=== PATIENT | female | born 1965 | race Caucasian/White ===

== ENCOUNTER → 2017-04-09 | Outpatient (CLI) | payer BC ==
[~2017-04-09] MED LIST: ACET50TA PO; ALBUTEROL INHL INH; ASAC800T2 PO; BIRTH CONTROL PILL PO; CIPR500T89 PO; FLAG500T PO; GARCINIA CAMBOGIA PO; MONT10TA2 PO; OMEP40CA2 PO; POTA20VL PO; PRED10TA2 PO; ROBISYP3 PO; SING5CHW PO; VITAMIN D PO; VITATAB11 PO
--- NOTE | 2017-04-10 08:03 | REPMRS ---
Patient History The patient states she had a clinical breast exam in 03/2017. Family history of breast cancer in maternal aunt and breast cancer in maternal grandmother. Taking hormonal contraceptives for 21 years. Digital Woman Screen Mammo: April 09, 2017 - Exam #: [id number] Bilateral CC and MLO view(s) were taken. Technologist: Aylin Garsia Technologist Prior study comparison: March 08, 2016, digital woman screen mammo performed at [facility] [employer] to [facility]. January 01, 2014, digital woman screen mammo performed at [facility] to [facility] October 16, 2012, digital woman screen mammo performed at [facility] to [facility]. FINDINGS: There are scattered fibroglandular densities. There has been no change in the appearance of the mammogram from the prior studies. There is a mild amount of scattered fibroglandular density which is fairly symmetric. There is no interval development of dominant mass, architectural distortion, or clustered microcalcification suggestive of malignancy. ASSESSMENT: BI-RADS/ACR category 1 mammogram. Negative. Recommendation Routine screening mammogram in 1 year (for women over age 40). This mammogram was interpreted with the aid of an FDA-approved computer-aided dectection system. Electronically Signed By: Randall Hager MD 04/10/17 0803
== END ==
LOC: M WHC 15:29
PROVIDERS: ATTEND Nurse Practitioner Family
DX: Z12.31 Encounter for screening mammogram for malignant neoplasm of breast (principal)

== ENCOUNTER → 2017-04-09 | Outpatient (REF) | payer BC | LOC: M SFHCWAGY 16:08 | PROVIDERS: ATTEND Nurse Practitioner Family | DX: Z12.4 Encounter for screening for malignant neoplasm of cervix (principal) ==

== ENCOUNTER → 2017-11-08 | Outpatient (CLI) | payer OTHER | LOC: M ADAMS 18:33 | DX: M25.78 Osteophyte, vertebrae (principal); M51.36 Other intervertebral disc degeneration, lumbar region; M54.41 Lumbago with sciatica, right side | CPT/HCPCS: 72110 ==

== ENCOUNTER → 2017-11-15 | Outpatient (REF) | payer OTHER ==
[2017-11-19 14:16] LABS: HPV HYBRID CAPTURE II Negative (Negative)
== END ==
LOC: M SFHCWAGY 13:53
DX: R87.612 Low grade squamous intraepithelial lesion on cytologic smear of cervix (LGSIL) (principal)

== ENCOUNTER → 2017-12-28 | Outpatient (CLI) | payer OTHER ==
[2017-12-28 09:11] LABS: HEMATOCRIT 41.3 % (36.0-47.0); HEMOGLOBIN 13.7 g/dl (12.0-16.0); MEAN CORPUSCULAR HEMOGLOBIN 29.1 pg (27.0-33.0); MEAN CORPUSCULAR HGB CONC 33.2 g/dl (32.0-36.5); MEAN CORPUSCULAR VOLUME 87.9 fl (80.0-96.0); PLATELET COUNT, AUTOMATED 233 10^3/uL (150-450); RED CELL DISTRIBUTION WIDTH 13.5 % (11.5-14.5); WHITE BLOOD COUNT 10.1 10^3/uL (4.0-10.0)
[2017-12-28 09:20] LABS: CREATININE FOR GFR 0.83 MG/DL (0.55-1.30); GLOMERULAR FILTRATION RATE > 60.0 (>51); IRON (FE) 112 UG/DL (50-170); PERCENT SATURATION 27.1 % (13.2-45.0); THYROXINE (T4) 11.7 UG/DL (4.5-12.0); TOTAL IRON BINDING CAPACITY 413 UG/DL (250-450)
[2017-12-28 10:13] LABS: ESTIMATED AVERAGE GLUCOSE 103 MG/DL (60-110); HEMOGLOBIN A1c 5.2 %
[2017-12-28 11:26] LABS: ALBUMIN 3.4 GM/DL (3.2-5.2); ALBUMIN/GLOBULIN RATIO 1.13 (1.00-1.93); ALKALINE PHOSPHATASE 74 U/L (45-117); ALT/SGPT 27 U/L (12-78); ANION GAP 9 MEQ/L (8-16); AST/SGOT 15 U/L (7-37); BILIRUBIN,TOTAL 0.3 MG/DL (0.2-1.0); BLOOD UREA NITROGEN 14 MG/DL (7-18); CALCIUM LEVEL 8.4 MG/DL (8.5-10.1); CARBON DIOXIDE LEVEL 24 MEQ/L (21-32); CHLORIDE LEVEL 109 MEQ/L (98-107); POTASSIUM SERUM 4.5 MEQ/L (3.5-5.1); SODIUM LEVEL 142 MEQ/L (136-145); TOTAL PROTEIN 6.4 GM/DL (6.4-8.2); TRIGLYCERIDES LEVEL 111 MG/DL (<150)
[2017-12-28 11:40] LABS: CHOLESTEROL LEVEL 181 MG/DL (<200); GLUCOSE, FASTING 84 MG/DL (70-100)
[2017-12-28 11:41] LABS: CHOLESTEROL RISK RATIO 2.873 (<5); HDL CHOLESTEROL 63 MG/DL (>40); LDL CHOLESTEROL 95.8 MG/DL (<100); NON-HDL-C 118 MG/DL
[2017-12-30 10:38] LABS: TOTAL 25(OH) VITAMIN D 29.3 NG/ML (30.0-100.0)
[2017-12-30 10:43] LABS: TOTAL T3 99.6 NG/DL (60.0-181.0)
== END ==
LOC: M LAB 07:31
DX: D64.9 Anemia, unspecified (principal); R53.83 Other fatigue; E03.9 Hypothyroidism, unspecified
CPT/HCPCS: 71046

== ENCOUNTER → 2018-03-14 | Outpatient (REF) | payer OTHER ==
[2018-03-14 14:08] LABS: URIC ACID 4.4 MG/DL (2.6-6.0)
[2018-03-14 14:08] LABS: RHEUMATOID FACTOR QUANT < 10.0 IU/ML (<15.0); TOTAL 25(OH) VITAMIN D 63.8 NG/ML (30.0-100.0)
[2018-03-14 15:23] LABS: ERYTHROCYTE SEDIMENTATION RATE 8 mm/hr (0-30)
[2018-03-16 00:06] LABS: Lyme Disease IgG/IgM Antibodie <0.91 ISR (0.00-0.90); Lyme Disease IgM Ab Quantitati <0.80 index (0.00-0.79)
== END ==
LOC: M LAB REF 12:33
DX: R53.83 Other fatigue (principal); E03.9 Hypothyroidism, unspecified
CPT/HCPCS: 84443

== ENCOUNTER → 2018-04-10 | Outpatient (CLI) | payer OTHER | LOC: M WHC 14:40 | DX: Z12.31 Encounter for screening mammogram for malignant neoplasm of breast (principal) | CPT/HCPCS: 77067 ==

== ENCOUNTER → 2018-04-10 | Outpatient (REF) | payer OTHER | LOC: M SFHCWAGY 14:57 | DX: Z12.4 Encounter for screening for malignant neoplasm of cervix (principal) ==

== ENCOUNTER → 2019-04-07 | Outpatient (REF) | payer OTHER ==
[~2019-04-07] MED LIST changes: -ACET50TA PO; -ASAC800T2 PO; +MAPA500T17 PO; -POTA20VL PO; +POTA2INJ30 PO; +[UNRECOGNIZED DRUG - CODE] PO
== END ==
LOC: M LAB REF 19:21
PROVIDERS: ATTEND Physician Assistant Medical
DX: N39.0 Urinary tract infection, site not specified (principal)

== ENCOUNTER → 2019-07-07 | Outpatient (CLI) | payer OTHER ==
--- NOTE | 2019-07-08 05:51 | REP ---
Clinical: Left shoulder pain. Technique: Internal rotation, external rotation, and Y view of the left shoulder. Findings: Cortical irregularity and very early spurring at the acromioclavicular joint is appreciated along with small loose bodies adjacent to the posterior and inferior humeral head suggesting elements of calcific tendinopathy. The glenoid rim is intact. There is no evidence for acute fracture or dislocation. Subacromial space is normal. Impression: Mild osteoarthritic degenerative changes and evidence to suggest calcific tendinopathy. Electronically Signed by Kashmir Garcias MD 07/08/2019 05:42 A
== END ==
LOC: M ADAMS 16:09
PROVIDERS: ATTEND Family Medicine
DX: M25.512 Pain in left shoulder (principal); M19.012 Primary osteoarthritis, left shoulder

== ENCOUNTER → 2019-08-12 | Outpatient (REF) | payer OTHER | LOC: M SFHCWAGY 11:49 | PROVIDERS: ATTEND Nurse Practitioner Family | DX: Z12.4 Encounter for screening for malignant neoplasm of cervix (principal) ==

== ENCOUNTER → 2019-12-22 | Outpatient (REF) | payer OTHER ==
[2019-12-22 13:15] LABS: HEMATOCRIT 43.7 % (36.0-47.0); HEMOGLOBIN 13.9 g/dl (12.0-15.5); MEAN CORPUSCULAR HEMOGLOBIN 30.5 pg (27.0-33.0); MEAN CORPUSCULAR HGB CONC 31.8 g/dl (32.0-36.5); PLATELET COUNT, AUTOMATED 203 10^3/uL (150-450); RED BLOOD COUNT 4.55 10^6/uL (4.00-5.40); WHITE BLOOD COUNT 11.8 10^3/uL (4.0-10.0)
[2019-12-22 13:45] LABS: ALBUMIN 3.6 GM/DL (3.2-5.2); ALT/SGPT 38 U/L (12-78); BILIRUBIN,TOTAL 0.4 MG/DL (0.2-1.0); BLOOD UREA NITROGEN 14 MG/DL (7-18); CARBON DIOXIDE LEVEL 30 MEQ/L (21-32); CHLORIDE LEVEL 108 MEQ/L (98-107); CHOLESTEROL LEVEL 227 MG/DL (<200); CHOLESTEROL RISK RATIO 3.721 (<5); CREATININE FOR GFR 0.85 MG/DL (0.55-1.30); GLOMERULAR FILTRATION RATE > 60.0 (>51); GLUCOSE, FASTING 77 MG/DL (70-100); HDL CHOLESTEROL 61 MG/DL (>40); LDL CHOLESTEROL 112 MG/DL (<100); NON-HDL-C 166 MG/DL; POTASSIUM SERUM 4.3 MEQ/L (3.5-5.1); SODIUM LEVEL 142 MEQ/L (136-145); TOTAL 25(OH) VITAMIN D 43.2 NG/ML (30.0-100.0); TOTAL PROTEIN 6.2 GM/DL (6.4-8.2); TRIGLYCERIDES LEVEL 268 MG/DL (<150)
[2019-12-22 19:45] LABS: HEMOGLOBIN A1c 5.1 %
== END ==
LOC: M LABDRWAD 12:33
PROVIDERS: ATTEND Family Medicine
DX: D64.9 Anemia, unspecified (principal); R53.83 Other fatigue; E03.9 Hypothyroidism, unspecified

== ENCOUNTER 2020-04-20 15:49 | Emergency (ER) | payer MEDICAID, OTHER ==
[~2020-04-20] VITALS: Ht 157.5 cm; Wt 59.1 kg
[2020-04-20 16:15] VITALS: BP 153/67
[2020-04-20] MEDS ORDERED: NS 1,000 ML IV ONE (16:15)
[2020-04-20] MEDS ORDERED: FAMOTIDINE INJ 20MG/2ML VIAL (S0028 PER 1) IVP ONE (16:15)
[2020-04-20] MEDS ORDERED: dexameTHASONE 20MG/5ML VIAL (J1100 PER 1MG) IV ONE (16:15)
[2020-04-20 16:39] LABS: BASO % 0.2 % (0.0-1.0); EOS % 0.1 % (0.0-3.0); HEMATOCRIT 42.6 % (36.0-47.0); HEMOGLOBIN 14.2 g/dl (12.0-15.5); LYMPH # 1.8 10^3/uL (1.5-5.0); LYMPH % 10.4 % (24.0-44.0); MEAN CORPUSCULAR HEMOGLOBIN 29.7 pg (27.0-33.0); MEAN CORPUSCULAR HGB CONC 33.3 g/dl (32.0-36.5); MEAN CORPUSCULAR VOLUME 89.1 fl (80.0-96.0); MONO # 0.9 10^3/uL (0.0-0.8); MONO % 5.2 % (0.0-5.0); NEUTROPHILS # 14.2 10^3/uL (1.5-8.5); NEUTROPHILS % 83.7 % (36.0-66.0); PLATELET COUNT, AUTOMATED 215 10^3/uL (150-450); RED BLOOD COUNT 4.78 10^6/uL (4.00-5.40); WHITE BLOOD COUNT 16.9 10^3/uL (4.0-10.0)
[2020-04-20 17:02] LABS: ERYTHROCYTE SEDIMENTATION RATE 3 mm/hr (0-30)
[2020-04-20 17:06] LABS: BLOOD UREA NITROGEN 11 MG/DL (7-18); C REACTIVE PROTEIN QUANTITATIV 0.94 MG/DL (0.00-0.30); CARBON DIOXIDE LEVEL 24 MEQ/L (21-32); CHLORIDE LEVEL 108 MEQ/L (98-107); CREATININE FOR GFR 0.86 MG/DL (0.55-1.30); GLOMERULAR FILTRATION RATE > 60.0 (>51); GLUCOSE, FASTING 97 MG/DL (70-100); SODIUM LEVEL 138 MEQ/L (136-145)
[2020-04-20] MEDS ORDERED: EPIP0.3I2 IM (18:14)
== END 2020-04-20 18:58 | disposition home or self-care (01) ==
LOC: EDBD 15:49 → M ED 15:49
DX: S10.96XA Insect bite of unspecified part of neck, initial encounter (principal); Y92.9 Unspecified place or not applicable; Y93.9 Activity, unspecified; Y99.9 Unspecified external cause status; L50.0 Allergic urticaria; F17.200 Nicotine dependence, unspecified, uncomplicated; F10.99 Alcohol use, unspecified with unspecified alcohol-induced disorder; Z79.51 Long term (current) use of inhaled steroids; Z79.52 Long term (current) use of systemic steroids; Z79.899 Other long term (current) drug therapy
CPT/HCPCS: 80048; 85025; 85652; 86140; 93041; 94760; 96361; 96374; 96375; 99285; J1100

== ENCOUNTER → 2020-05-30 | Outpatient (CLI) | payer MEDICAID, OTHER ==
[~2020-05-30] MED LIST changes: +EPIP0.3I2 IM; +PROHANCE 279.3MG/ML 15ML VIAL ONE
--- NOTE | 2020-07-08 15:00 | REP ---
BILATERAL BREAST MRI STUDY WITHOUT AND WITH INTRAVENOUS CONTRAST HISTORY: Genetic susceptibility to breast cancer for breast cancer screening. COMPARISON: Mammography 04/10/2018. MAMMOGRAPHIC FINDINGS: There is a [id number] pattern of symmetric fibroglandular tissue bilaterally. There is a minimal pattern of background parenchymal enhancement. There is no evidence of axillary lymphadenopathy on either side. T1 and T2- weighted pre- and postcontrast images show no suspicious morphologically abnormality. There is no evidence of significant breast cystic change. Dynamically acquired sequential postcontrast images show no suspicious focus of enhancement and/or washout in either breast to suggest malignancy. Subtraction images are unremarkable. IMPRESSION: BI-RADS Category 1 negative bilateral breast MRI findings. Patients whose lifetime breast caner risk assessment is greater than 20% merit annual screening MRI scanning in addition to annual screening mammography. LUBNAD
== END ==
LOC: M RAD 10:00
PROVIDERS: ATTEND Surgery
DX: Z15.01 Genetic susceptibility to malignant neoplasm of breast (principal)
CPT/HCPCS: A9576; C8908

== ENCOUNTER → 2020-11-03 | Outpatient (CLI) | payer OTHER ==
[~2020-11-03] MED LIST changes: -PROHANCE 279.3MG/ML 15ML VIAL ONE
--- NOTE | 2020-11-03 12:25 | REPMRS ---
Patient History The patient states she had a clinical breast exam in August 2020. Family history of breast cancer in maternal grandmother, breast cancer in maternal aunt. Took hormonal contraceptives for 23 years. 3D TOMOSYNTHESIS WAS PERFORMED. The [place] Berumen lifetime risk for breast cancer is 14.3%. Volpara breast density b. Digital Woman Screen Mammo: November 03, 2020 - Exam #: [id number] Bilateral CC and MLO view(s) were taken. Technologist: Alfreda Kilgore, Technologist Prior study comparison: April 10, 2018, bilateral digital woman screen mammo performed at [facility]. April 09, 2017, digital woman screen mammo performed at [facility]. FINDINGS: There are scattered fibroglandular densities. There has been no change in the appearance of the mammogram from the prior studies. There is a mild amount of residual fibroglandular tissue which is fairly symmetric. There is no interval development of dominant mass, architectural distortion, or clustered microcalcification suggestive of malignancy. Assessment: BI-RADS/ACR category 1 mammogram. Negative Mammogram. Recommendation Routine screening mammogram in 1 year (for women over age 40). This mammogram was interpreted with the aid of an FDA-approved computer-aided dectection system. Electronically Signed By: Chaitanya Borja MD 11/03/20 [id number]
== END ==
LOC: M WHC 11:21
PROVIDERS: ATTEND Nurse Practitioner Family
DX: Z12.31 Encounter for screening mammogram for malignant neoplasm of breast (principal)

== ENCOUNTER → 2020-11-09 | Outpatient (REF) | payer OTHER | LOC: M SFHCWAGY 13:45 | PROVIDERS: ATTEND Nurse Practitioner Family | DX: Z12.4 Encounter for screening for malignant neoplasm of cervix (principal); Z01.419 Encounter for gynecological examination (general) (routine) without abnormal findings ==

== ENCOUNTER → 2020-12-22 | Outpatient (REF) | payer OTHER ==
[2020-12-22 13:20] LABS: HEMATOCRIT 43.3 % (36.0-47.0); HEMOGLOBIN 13.9 g/dl (12.0-15.5); MEAN CORPUSCULAR HEMOGLOBIN 29.6 pg (27.0-33.0); MEAN CORPUSCULAR HGB CONC 32.1 g/dl (32.0-36.5); MEAN CORPUSCULAR VOLUME 92.3 fl (80.0-96.0); PLATELET COUNT, AUTOMATED 214 10^3/uL (150-450); RED BLOOD COUNT 4.69 10^6/uL (4.00-5.40); WHITE BLOOD COUNT 8.3 10^3/uL (4.0-10.0)
[2020-12-22 13:51] LABS: ALBUMIN 3.7 GM/DL (3.2-5.2); ALT/SGPT 31 U/L (12-78); BILIRUBIN,DIRECT < 0.1 MG/DL (0.0-0.2); BILIRUBIN,TOTAL 0.3 MG/DL (0.2-1.0); BLOOD UREA NITROGEN 11 MG/DL (7-18); CALCIUM LEVEL 9.3 MG/DL (8.5-10.1); CARBON DIOXIDE LEVEL 26 MEQ/L (21-32); CHLORIDE LEVEL 109 MEQ/L (98-107); CREATININE FOR GFR 0.81 MG/DL (0.55-1.30); GLOMERULAR FILTRATION RATE > 60.0 (>51); GLUCOSE, FASTING 83 MG/DL (70-100); POTASSIUM SERUM 4.1 MEQ/L (3.5-5.1); SODIUM LEVEL 142 MEQ/L (136-145); TOTAL PROTEIN 6.2 GM/DL (6.4-8.2)
[2020-12-22 13:52] LABS: TOTAL 25(OH) VITAMIN D 44.8 NG/ML (30.0-100.0)
[2020-12-22 14:13] LABS: HEMOGLOBIN A1c 5.1 %
== END ==
LOC: M LABDRWAD 13:00
PROVIDERS: ATTEND Family Medicine
DX: I10 Essential (primary) hypertension (principal); R53.83 Other fatigue; E03.9 Hypothyroidism, unspecified

== ENCOUNTER → 2021-02-17 | Outpatient (CLI) | payer OTHER ==
[~2021-02-17] MED LIST changes: +LIAL1.2T PO; +MESA1000 PR; +ZOLP10TA2 PO
== END ==
LOC: M LABSMTC 12:43
PROVIDERS: ATTEND Anesthesiology
DX: Z01.812 Encounter for preprocedural laboratory examination (principal); Z20.822 Contact with and (suspected) exposure to COVID-19

== ENCOUNTER 2021-02-22 10:20 | Day surgery (SDC) | payer OTHER ==
[~2021-02-22] VITALS: Ht 157.5 cm; Wt 65.7 kg
[~2021-02-22 10:20] MED LIST changes: +NS 1,000 ML IV ONE
[2021-02-22] MEDS ORDERED: propofoL 200 MG/20 ML VIAL As Ordered ONE ×2 (11:38→11:50)
[2021-02-22] MEDS ORDERED: LIDOCAINE 2% MDV 20ML VIAL As Ordered ONE (11:38)
--- NOTE | 2021-02-22 12:02 | ROOR ---
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 Procedure: Pre-Anesthesia Assessment: - The heart rate, respiratory rate, oxygen saturations, blood pressure, adequacy of pulmonary ventilation, and response to care were monitored throughout the procedure. The Colonoscope was introduced through the anus and advanced to the cecum, identified by appendiceal orifice and ileocecal valve. The colonoscopy was performed without difficulty. The patient tolerated the procedure well. The quality of the bowel preparation was excellent. Findings: The perianal and digital rectal examinations were normal. Non-bleeding internal hemorrhoids were found during retroflexion. The hemorrhoids were small and Grade I (internal hemorrhoids that do not prolapse). Multiple small and large-mouthed diverticula were found in the recto-sigmoid colon, sigmoid colon and descending colon. The exam was otherwise normal throughout the examined colon. Multiple biopsies were obtained with cold forceps for surveillance randomly in the rectum, in the descending colon and in the transverse colon. The terminal ileum appeared normal. The exam was otherwise without abnormality. Impression: - Non-bleeding internal hemorrhoids. - Diverticulosis in the recto-sigmoid colon, in the sigmoid colon and in the descending colon. - The examined portion of the ileum was normal. - The examination was otherwise normal. - Multiple biopsies were obtained in the rectum, in the descending colon and in the transverse colon. - The exam was otherwise normal to the cecum. Recommendation: - Patient has a contact number available for emergencies. The signs and symptoms of potential delayed complications were discussed with the patient. Return to normal activities tomorrow. Written discharge instructions were provided to the patient. - High fiber diet. - Discharge patient to home. - Continue present medications. - Await pathology results. - Telephone GI clinic for pathology results in 1 week. - Repeat colonoscopy in 5 years for surveillance based on pathology results. - Return to referring physician. - The findings and recommendations were discussed with the patient's family. Procedure Code(s): --- Professional --- 39201, Colonoscopy, flexible; with biopsy, single or multiple Diagnosis Code(s): --- Professional --- K51.50, Left sided colitis without complications K64.0, First degree hemorrhoids K57.30, Diverticulosis of large intestine without perforation or abscess without bleeding CPT copyright 2019 [employer]. All rights reserved. The codes documented in this report are preliminary and upon grocery buyer review may be revised to meet current compliance requirements. Carroll Byrne MD Carroll Byrne MD 02/22/2021 12:02:19 PM Electronically signed by Carroll Byrne MD Number of Addenda: 0 Note Initiated On: 02/22/2021 11:39 AM Estimated Blood Loss: Estimated blood loss: none.
[2021-02-22 12:15] VITALS: BP 147/67
== END 2021-02-22 12:17 | disposition home or self-care (01) ==
LOC: M OPP 10:20
PROVIDERS: ATTEND Internal Medicine Gastroenterology
DX: K51.50 Left sided colitis without complications (principal); K64.0 First degree hemorrhoids; K57.30 Diverticulosis of large intestine without perforation or abscess without bleeding; I73.00 Raynaud's syndrome without gangrene; Z79.899 Other long term (current) drug therapy; Z87.891 Personal history of nicotine dependence

== ENCOUNTER → 2021-08-01 | Outpatient (CLI) | payer OTHER ==
[~2021-08-01] MED LIST changes: -NS 1,000 ML IV ONE; +PROHANCE 279.3MG/ML 15ML VIAL As Ordered ONE
--- NOTE | 2021-08-01 11:47 | REP ---
INDICATION: HIGH RISK FOR BREAST CA, FAM HX. COMPARISON: MRI 05/30/2020, mammogram 11/03/2020 as well as other prior exams. TECHNIQUE: Three Aleisha MRI imaging was performed with a dedicated breast coil. Axial, coronal, and sagittal T1 and T2 weighted scans were obtained with and without fat saturation in the usual fashion. The study includes dynamically acquired post gadolinium-enhanced imaging with image subtraction. Maximum intensity projection and multi planar reformation imaging is included as well. This study is interpreted with the aid of [employer], an FDA approved computer aided detection (CAD) software program, on a dedicated breast MRI workstation. The gadolinium enhancement dose is 12 mL of intravenous ProHance. FINDINGS: There is mild fibroglandular tissue symmetrically bilaterally. There is no axillary adenopathy. There is no significant cystic change in either breast. There is mild background parenchymal enhancement. There is no suspicious enhancing mass or morphologic abnormality. IMPRESSION: BI-RADS category 1, negative bilateral breast MRI. No suspicious enhancing mass or morphologic abnormality. <Electronically signed by Chaitanya Borja > 08/01/21 [id number]
== END ==
LOC: M RAD 08:43
PROVIDERS: ATTEND Surgery
DX: Z12.31 Encounter for screening mammogram for malignant neoplasm of breast (principal); Z91.89 Other specified personal risk factors, not elsewhere classified; Z80.3 Family history of malignant neoplasm of breast
CPT/HCPCS: 77049; A9576

== ENCOUNTER → 2021-12-11 | Outpatient (REF) | payer OTHER ==
[~2021-12-11] MED LIST changes: -PROHANCE 279.3MG/ML 15ML VIAL As Ordered ONE
== END ==
LOC: M SFHCDERM 17:17
PROVIDERS: ATTEND Nurse Practitioner Family
DX: B07.9 Viral wart, unspecified (principal)

== ENCOUNTER → 2022-07-13 | Outpatient (CLI) | payer MEDICARE, MEDICAID | LOC: M WHC 08:50 | PROVIDERS: ATTEND Advanced Practice Midwife | DX: Z12.31 Encounter for screening mammogram for malignant neoplasm of breast (principal) ==

== ENCOUNTER → 2023-02-21 | Outpatient (CLI) | payer MEDICARE ==
[2023-02-21 08:54] LABS: HEMATOCRIT 42.4 % (36.0-47.0); HEMOGLOBIN 13.7 g/dl (12.0-15.5); MEAN CORPUSCULAR HEMOGLOBIN 29.2 pg (27.0-33.0); MEAN CORPUSCULAR HGB CONC 32.3 g/dl (32.0-36.5); MEAN CORPUSCULAR VOLUME 90.4 fl (80.0-96.0); PLATELET COUNT, AUTOMATED 205 10^3/uL (150-450); RED BLOOD COUNT 4.69 10^6/uL (4.00-5.40); WHITE BLOOD COUNT 8.6 10^3/uL (4.0-10.0)
[2023-02-21 09:25] LABS: ALBUMIN 3.8 G/DL (3.2-5.2); ALKALINE PHOSPHATASE 133 U/L (46-116); ALT/SGPT 32 U/L (7.0-40); AST/SGOT 28 U/L (<34); BILIRUBIN,TOTAL 0.5 MG/DL (0.3-1.2); BLOOD UREA NITROGEN 11 MG/DL (9-23); CALCIUM LEVEL 9.1 MG/DL (8.5-10.1); CARBON DIOXIDE LEVEL 28 MMOL/L (20-31); CHLORIDE LEVEL 107 MMOL/L (98-107); CHOLESTEROL LEVEL 243 MG/DL (<200); CHOLESTEROL RISK RATIO 4.22 (<5); CREATININE FOR GFR 0.82 MG/DL (0.55-1.30); GLOMERULAR FILTRATION RATE > 60.0 (>51); GLUCOSE, FASTING 95 MG/DL (60-100); HDL CHOLESTEROL 57.5 MG/DL (>40); LDL CHOLESTEROL 140.5 MG/DL (<100); NON-HDL-C 185.5 MG/DL; SODIUM LEVEL 141 MMOL/L (136-145); TOTAL PROTEIN 6.6 G/DL (5.7-8.2); TRIGLYCERIDES LEVEL 225 MG/DL (<150)
[2023-02-21 09:26] LABS: LUTEINIZING HORMONE 35.2 mIU/ML
[2023-02-21 09:27] LABS: ESTRADIOL < 19.0 PG/ML; THYROID STIMULATING HORMONE 1.351 uIU/ML (0.55-4.78); TOTAL 25(OH) VITAMIN D 38.8 NG/ML (20.0-100.0)
[2023-02-21 09:48] LABS: HEMOGLOBIN A1c 5.2 % (4.0-6.0)
== END ==
LOC: M RAD 07:52
PROVIDERS: ATTEND Family Medicine
DX: R53.83 Other fatigue (principal); I10 Essential (primary) hypertension; E03.9 Hypothyroidism, unspecified; D64.9 Anemia, unspecified; Z79.899 Other long term (current) drug therapy

== ENCOUNTER → 2023-02-26 | Outpatient (CLI) | payer MEDICAID, MEDICARE ==
[~2023-02-26] MED LIST changes: +PROHANCE 279.3MG/ML 15ML VIAL ONE
== END ==
LOC: M PLAIMG 12:52
PROVIDERS: ATTEND Advanced Practice Midwife
DX: Z12.31 Encounter for screening mammogram for malignant neoplasm of breast (principal)
CPT/HCPCS: A9576; C8908

== ENCOUNTER → 2023-07-24 | Outpatient (REF) | payer MEDICARE, MEDICAID ==
[~2023-07-24] MED LIST changes: -PROHANCE 279.3MG/ML 15ML VIAL ONE
== END ==
LOC: M SFHCWAGY 13:15
PROVIDERS: ATTEND Nurse Practitioner Family
DX: Z12.4 Encounter for screening for malignant neoplasm of cervix (principal); R10.2 Pelvic and perineal pain

== ENCOUNTER → 2023-07-24 | Outpatient (CLI) | payer MEDICARE, MEDICAID | LOC: M WHC 09:22 | PROVIDERS: ATTEND Nurse Practitioner Family | DX: Z12.31 Encounter for screening mammogram for malignant neoplasm of breast (principal) ==

== ENCOUNTER → 2023-09-07 | Outpatient (CLI) | payer MEDICARE, MEDICAID ==
[2023-09-07 09:35] LABS: HEMATOCRIT 47.5 % (36.0-47.0); HEMOGLOBIN 15.8 g/dl (12.0-15.5); MEAN CORPUSCULAR HEMOGLOBIN 29.8 pg (27.0-33.0); MEAN CORPUSCULAR HGB CONC 33.3 g/dl (32.0-36.5); MEAN CORPUSCULAR VOLUME 89.5 fl (80.0-96.0); PLATELET COUNT, AUTOMATED 237 10^3/uL (150-450); RED BLOOD COUNT 5.31 10^6/uL (4.00-5.40)
[2023-09-07 09:43] LABS: AMORPHOUS SEDIMENT SMALL (NEGATIVE); APPEARANCE, URINE CLOUDY (CLEAR); BACTERIA, URINE AUTO NEGATIVE (NEGATIVE); BILIRUBIN, URINE AUTO NEGATIVE (NEGATIVE); BLOOD, URINE BLOOD NEGATIVE (NEGATIVE); COLOR, URINE YELLOW (YELLOW); GLUCOSE, URINE (UA) AUTO NEGATIVE (NEGATIVE); KETONE, URINE AUTO TRACE mg/dL (NEGATIVE); LEUKOCYTE ESTERASE, URINE AUTO 3+ (NEGATIVE); MUCUS, URINE SMALL (NEGATIVE); NITRITE, URINE AUTO NEGATIVE (NEGATIVE); PROTEIN, URINE AUTO NEGATIVE (NEGATIVE); RBC, URINE AUTO 2 /HPF (0-3); SPECIFIC GRAVITY URINE AUTO 1.017 (1.002-1.035); SQUAMOUS EPITHELIAL CELL UR AU 9 /HPF (0-6); UROBILINOGEN, URINE AUTO 0.2 mg/dL (0.0-2.0); WBC, URINE AUTO 45 /HPF (0-3)
[2023-09-07 10:07] LABS: ALBUMIN 3.9 G/DL (3.2-5.2); ALKALINE PHOSPHATASE 97 U/L (46-116); ALT/SGPT 34 U/L (7.0-40); AST/SGOT 39 U/L (<34); BILIRUBIN,TOTAL 0.6 MG/DL (0.3-1.2); BLOOD UREA NITROGEN 9 MG/DL (9-23); CARBON DIOXIDE LEVEL 29 MMOL/L (20-31); CHLORIDE LEVEL 106 MMOL/L (98-107); CHOLESTEROL LEVEL 233 MG/DL (<200); CHOLESTEROL RISK RATIO 3.45 (<5); CREATININE FOR GFR 0.73 MG/DL (0.55-1.30); GLOMERULAR FILTRATION RATE > 60.0 (>51); GLUCOSE, FASTING 90 MG/DL (60-100); HDL CHOLESTEROL 67.4 MG/DL (>40); NON-HDL-C 165.6 MG/DL; SODIUM LEVEL 144 MMOL/L (136-145); TOTAL PROTEIN 6.7 G/DL (5.7-8.2); TRIGLYCERIDES LEVEL 133 MG/DL (<150)
[2023-09-07 10:11] LABS: THYROID STIMULATING HORMONE 1.475 uIU/ML (0.55-4.78)
== END ==
LOC: M LAB 08:50
PROVIDERS: ATTEND Family Medicine
DX: I10 Essential (primary) hypertension (principal); D64.9 Anemia, unspecified; N39.0 Urinary tract infection, site not specified

== ENCOUNTER → 2023-09-11 | Outpatient (CLI) | payer MEDICARE, OTHER | LOC: M RAD 12:10 | PROVIDERS: ATTEND Family Medicine | DX: R31.9 Hematuria, unspecified (principal); N32.89 Other specified disorders of bladder ==

== ENCOUNTER → 2023-09-30 | Outpatient (CLI) | payer MEDICARE, OTHER ==
[~2023-09-30] MED LIST changes: +GASTROGRAFIN SOLUTION 30ML As Ordered ONE; +ISOVUE-370 76% 100ML VIAL As Ordered ONE
== END ==
LOC: M RAD 15:41
PROVIDERS: ATTEND Family Medicine
DX: R19.03 Right lower quadrant abdominal swelling, mass and lump (principal)
CPT/HCPCS: 74178; Q9963; Q9967

== ENCOUNTER 2023-10-25 16:13 | Outpatient (CLI) | payer MEDICARE, OTHER ==
[~2023-10-25] VITALS: Ht 157.5 cm; Wt 60.0 kg
[~2023-10-25 16:13] MED LIST changes: -GASTROGRAFIN SOLUTION 30ML As Ordered ONE; -ISOVUE-370 76% 100ML VIAL As Ordered ONE
[2023-10-25 16:30] VITALS: BP 140/90; TEMP 98.3; O2SAT 100
[2023-10-25] MEDS ORDERED: VEDOLIZUMAB 300 MG in NS 250 ML IV ONE (16:30)
[2023-10-25] MEDS ORDERED: FLUO40CA PO (16:59)
[2023-10-25] MEDS ORDERED: PHEN30CA21 PO (16:59)
[2023-10-25] MEDS ORDERED: ENTY1INJ IV (17:01)
[2023-10-25 17:55] VITALS: BP 138/72; TEMP 98.1; O2SAT 100
== END 2023-10-25 18:10 | disposition home or self-care (01) ==
LOC: M INFU 16:13
PROVIDERS: ATTEND Internal Medicine Gastroenterology
DX: K51.90 Ulcerative colitis, unspecified, without complications (principal)
CPT/HCPCS: 96365; J3380

== ENCOUNTER 2023-11-08 16:15 | Outpatient (CLI) | payer MEDICARE, OTHER ==
[~2023-11-08] VITALS: Ht 160 cm; Wt 60.4 kg
[~2023-11-08 16:15] MED LIST changes: +ENTY1INJ IV; +FLUO40CA PO; +PHEN30CA21 PO
[2023-11-08 16:19] VITALS: BP 158/78; TEMP 98.8; O2SAT 100
[2023-11-08] MEDS: VEDOLIZUMAB 300 MG in NS 250 ML IV ONE (17:13)
[2023-11-08 17:50] VITALS: BP 156/77; O2SAT 100
== END 2023-11-08 17:50 | disposition home or self-care (01) ==
LOC: M INFU 16:15
PROVIDERS: ATTEND Internal Medicine Gastroenterology
DX: K51.90 Ulcerative colitis, unspecified, without complications (principal)
CPT/HCPCS: 96365; J3380

== ENCOUNTER → 2023-11-26 | Outpatient (REF) | payer MEDICARE, OTHER | LOC: M SFHCWAGY 13:08 | PROVIDERS: ATTEND Nurse Practitioner Family | DX: R39.14 Feeling of incomplete bladder emptying (principal) ==

== ENCOUNTER → 2023-11-28 | Outpatient (REF) | payer MEDICARE, OTHER | LOC: M SFHCWAGY 17:30 | PROVIDERS: ATTEND Nurse Practitioner Family | DX: R39.14 Feeling of incomplete bladder emptying (principal) ==

== ENCOUNTER 2023-12-06 10:10 | Outpatient (CLI) | payer MEDICAID, MEDICARE ==
[~2023-12-06] VITALS: Ht 157.5 cm; Wt 60.5 kg
[2023-12-06 10:30] VITALS: BP 128/70; O2SAT 100
[2023-12-06] MEDS: VEDOLIZUMAB 300 MG in NS 250 ML IV ONE (10:47)
[2023-12-06 11:30] VITALS: BP 142/88; O2SAT 100
[2023-12-06] MEDS ORDERED: VEDOLIZUMAB 300 MG in NS 250 ML IV ONE (16:30)
== END 2023-12-06 11:30 ==
LOC: M INFU 10:10
PROVIDERS: ATTEND Internal Medicine Gastroenterology
DX: K51.90 Ulcerative colitis, unspecified, without complications (principal)
CPT/HCPCS: 96365; J3380

== ENCOUNTER 2024-01-31 12:49 | Outpatient (CLI) | payer MEDICARE, OTHER ==
[~2024-01-31] VITALS: Ht 157.5 cm; Wt 62.0 kg
[2024-01-31 12:55] VITALS: BP 148/72; O2SAT 100
[2024-01-31] MEDS: VEDOLIZUMAB 300 MG in NS 250 ML IV ONE (13:38)
[2024-01-31 14:20] VITALS: BP 136/74; O2SAT 100
== END 2024-01-31 14:20 | disposition home or self-care (01) ==
LOC: M INFU 12:49
PROVIDERS: ATTEND Internal Medicine Gastroenterology
DX: K51.919 Ulcerative colitis, unspecified with unspecified complications (principal)
CPT/HCPCS: 96365; J3380

== ENCOUNTER → 2024-02-28 | Outpatient (CLI) | payer MEDICARE ==
[~2024-02-28] MED LIST changes: +PROHANCE 279.3MG/ML 15ML VIAL ONE
== END ==
LOC: M PLAIMG 09:13
PROVIDERS: ATTEND Nurse Practitioner Family
DX: Z12.39 Encounter for other screening for malignant neoplasm of breast (principal); Z15.01 Genetic susceptibility to malignant neoplasm of breast; Z80.3 Family history of malignant neoplasm of breast
CPT/HCPCS: A9576; C8908

== ENCOUNTER 2024-03-27 12:30 | Outpatient (CLI) | payer MEDICARE, OTHER ==
[~2024-03-27] VITALS: Ht 157.5 cm; Wt 61.4 kg
[2024-03-27 12:30] VITALS: BP 175/84; O2SAT 99
[~2024-03-27 12:30] MED LIST changes: -PROHANCE 279.3MG/ML 15ML VIAL ONE
[2024-03-27] MEDS: VEDOLIZUMAB 300 MG in NS 250 ML IV ONE (13:22)
== END 2024-03-27 14:00 ==
LOC: M INFU 12:30
PROVIDERS: ATTEND Internal Medicine Gastroenterology
DX: K51.90 Ulcerative colitis, unspecified, without complications (principal)
CPT/HCPCS: 96413; J3380

== ENCOUNTER 2024-05-26 10:22 | Outpatient (CLI) | payer MEDICARE, OTHER ==
[~2024-05-26] VITALS: Ht 157.5 cm; Wt 62.0 kg
[~2024-05-26 10:22] MED LIST changes: +VEDOLIZUMAB 300 MG in NS 250 ML IV ONE
[2024-05-26 10:40] VITALS: BP 140/70; O2SAT 97
[2024-05-26] MEDS: VEDOLIZUMAB 300 MG in NS 250 ML IV ONE (11:26)
[2024-05-26 12:05] VITALS: BP 142/70; O2SAT 99
== END 2024-05-26 12:10 ==
LOC: M INFU 10:22
PROVIDERS: ATTEND Internal Medicine Gastroenterology
DX: K51.90 Ulcerative colitis, unspecified, without complications (principal)
CPT/HCPCS: 96413; J3380

== ENCOUNTER → 2024-07-07 | Outpatient (CLI) | payer MEDICARE, OTHER ==
[~2024-07-07] MED LIST changes: -VEDOLIZUMAB 300 MG in NS 250 ML IV ONE
[2024-07-07 10:22] LABS: HEMATOCRIT 43.5 % (36.0-47.0); HEMOGLOBIN 14.3 g/dl (12.0-15.5); MEAN CORPUSCULAR HEMOGLOBIN 30.2 pg (27.0-33.0); MEAN CORPUSCULAR HGB CONC 32.9 g/dl (32.0-36.5); MEAN CORPUSCULAR VOLUME 91.8 fl (80.0-96.0); PLATELET COUNT, AUTOMATED 223 10^3/uL (150-450); RED BLOOD COUNT 4.74 10^6/uL (4.00-5.40)
[2024-07-07 10:48] LABS: HEMOGLOBIN A1c 4.9 % (4.0-6.0)
[2024-07-07 10:49] LABS: ALBUMIN 3.8 G/DL (3.2-5.2); ALKALINE PHOSPHATASE 107 U/L (46-116); ALT/SGPT 33 U/L (7.0-40); AST/SGOT 38 U/L (<34); BILIRUBIN,TOTAL 0.5 MG/DL (0.3-1.2); BLOOD UREA NITROGEN 10 MG/DL (9-23); CALCIUM LEVEL 8.9 MG/DL (8.3-10.6); CARBON DIOXIDE LEVEL 28 MMOL/L (20-31); CHLORIDE LEVEL 107 MMOL/L (98-107); CHOLESTEROL LEVEL 260 MG/DL (<200); CHOLESTEROL RISK RATIO 3.65 (<5); CREATININE FOR GFR 0.76 MG/DL (0.55-1.30); GLOMERULAR FILTRATION RATE > 60.0 (>45); GLUCOSE, FASTING 93 MG/DL (74-106); HDL CHOLESTEROL 71.2 MG/DL (>40); LDL CHOLESTEROL 172.2 MG/DL (<100); NON-HDL-C 188.8 MG/DL; POTASSIUM SERUM 4.6 MMOL/L (3.5-5.1); SODIUM LEVEL 140 MMOL/L (136-145); TOTAL PROTEIN 6.5 G/DL (5.7-8.2); TRIGLYCERIDES LEVEL 83 MG/DL (<150)
[2024-07-07 10:50] LABS: THYROID STIMULATING HORMONE 1.582 uIU/ML (0.55-4.78); TOTAL 25(OH) VITAMIN D 53.2 NG/ML (20.0-100.0)
== END ==
LOC: M LAB 08:57
PROVIDERS: ATTEND Family Medicine
DX: D64.9 Anemia, unspecified (principal); R53.83 Other fatigue; E03.9 Hypothyroidism, unspecified

== ENCOUNTER 2024-07-21 10:20 | Outpatient (CLI) | payer MEDICARE, OTHER ==
[~2024-07-21] VITALS: Ht 157.5 cm; Wt 59.5 kg
[2024-07-21 10:20] VITALS: BP 140/88; O2SAT 100
[2024-07-21] MEDS: VEDOLIZUMAB 300 MG in LR 250 ML IV ONE (11:13)
[2024-07-21 11:50] VITALS: BP 160/90; O2SAT 100
== END 2024-07-21 11:50 ==
LOC: M INFU 10:20
PROVIDERS: ATTEND Internal Medicine Gastroenterology
DX: K51.90 Ulcerative colitis, unspecified, without complications (principal)
CPT/HCPCS: 96365; J3380

== ENCOUNTER → 2024-07-29 | Outpatient (CLI) | payer MEDICARE, OTHER | LOC: M WHC 07-19 10:02 | PROVIDERS: ATTEND Nurse Practitioner Family | DX: Z12.31 Encounter for screening mammogram for malignant neoplasm of breast (principal) ==

== ENCOUNTER 2024-09-15 10:35 | Outpatient (CLI) | payer MEDICARE, OTHER ==
[~2024-09-15] VITALS: Ht 157.5 cm; Wt 61.3 kg
[2024-09-15 10:35] VITALS: BP 122/78; O2SAT 98
[2024-09-15] MEDS: VEDOLIZUMAB 300 MG in NS 250 ML IV ONE (11:07)
[2024-09-15 11:45] VITALS: BP 144/78; O2SAT 100
== END 2024-09-15 11:45 ==
LOC: M INFU 10:35
PROVIDERS: ATTEND Internal Medicine Gastroenterology
DX: K51.90 Ulcerative colitis, unspecified, without complications (principal)
CPT/HCPCS: 96365; J3380

== ENCOUNTER 2024-11-10 10:43 | Outpatient (CLI) | payer MEDICARE, OTHER ==
[~2024-11-10] VITALS: Ht 157.5 cm; Wt 61.4 kg
[2024-11-10 10:50] VITALS: BP 155/74; O2SAT 100
[2024-11-10] MEDS: VEDOLIZUMAB 300 MG in NS 250 ML IV ONE (11:35)
[2024-11-10 12:10] VITALS: BP 160/96; O2SAT 100
== END 2024-11-10 12:15 ==
LOC: M INFU 10:43
PROVIDERS: ATTEND Internal Medicine Gastroenterology
DX: K51.90 Ulcerative colitis, unspecified, without complications (principal)
CPT/HCPCS: 96413; J3380

== ENCOUNTER → 2025-01-05 | Outpatient (CLI) | payer MEDICARE, OTHER ==
[~2025-01-05] VITALS: Ht 157.5 cm; Wt 61.3 kg
[2025-01-05 10:20] VITALS: BP 153/78; O2SAT 99
[2025-01-05] MEDS: VEDOLIZUMAB 300 MG in NS 250 ML IV ONE (11:08)
[2025-01-05 11:44] VITALS: BP 145/68; O2SAT 99
== END ==
LOC: M INFU 10:14
PROVIDERS: ATTEND Internal Medicine Gastroenterology
DX: K51.919 Ulcerative colitis, unspecified with unspecified complications (principal)
CPT/HCPCS: 96413; J3380

== ENCOUNTER → 2025-02-08 | Outpatient (CLI) | payer MEDICARE, OTHER ==
[~2025-02-08] MED LIST changes: +PROHANCE 279.3MG/ML 15ML VIAL ONE
== END ==
LOC: M PLAIMG 01-28 10:13
PROVIDERS: ATTEND Nurse Practitioner Family
DX: Z12.39 Encounter for other screening for malignant neoplasm of breast (principal); Z80.3 Family history of malignant neoplasm of breast; Z15.01 Genetic susceptibility to malignant neoplasm of breast
CPT/HCPCS: A9576; C8908

== ENCOUNTER 2025-03-02 10:07 | Outpatient (CLI) | payer MEDICARE, OTHER ==
[~2025-03-02] VITALS: Ht 157.5 cm; Wt 61.4 kg
[~2025-03-02 10:07] MED LIST changes: -PROHANCE 279.3MG/ML 15ML VIAL ONE
[2025-03-02 10:20] VITALS: BP 160/80; O2SAT 100
[2025-03-02] MEDS: VEDOLIZUMAB 300 MG in NS 250 ML IV ONE (11:05)
[2025-03-02 11:45] VITALS: BP 158/92; O2SAT 100
== END 2025-03-02 11:45 | disposition home or self-care (01) ==
LOC: M INFU 10:07
PROVIDERS: ATTEND Internal Medicine Gastroenterology
DX: K51.919 Ulcerative colitis, unspecified with unspecified complications (principal)
CPT/HCPCS: 96413; J3380

== ENCOUNTER 2025-04-27 10:11 | Outpatient (CLI) | payer MEDICARE, OTHER ==
[~2025-04-27] VITALS: Ht 157.5 cm; Wt 61.4 kg
[2025-04-27 10:25] VITALS: BP 120/70; O2SAT 96
[2025-04-27] MEDS: VEDOLIZUMAB 300 MG in NS 250 ML IV ONE (11:00)
[2025-04-27 11:30] VITALS: BP 110/70; O2SAT 97
== END 2025-04-27 11:40 | disposition home or self-care (01) ==
LOC: M INFU 10:11
PROVIDERS: ATTEND Internal Medicine Gastroenterology
DX: K51.90 Ulcerative colitis, unspecified, without complications (principal)
CPT/HCPCS: 96365; J3380

== ENCOUNTER → 2025-05-20 | Outpatient (REF) | payer MEDICARE ==
[2025-05-20 18:18] LABS: BASO # 0.1 10^3/uL (0.0-0.2); BASO % 0.7 % (0.0-1.0); EOS # 0.2 10^3/uL (0.0-0.5); EOS % 1.8 % (0.0-3.0); LYMPH # 2.3 10^3/uL (1.5-5.0); LYMPH % 23.6 % (24.0-44.0); MONO # 0.6 10^3/uL (0.0-0.8); MONO % 6.1 % (2.0-8.0); NEUTROPHILS # 6.5 10^3/uL (1.5-8.5); NEUTROPHILS % 67.5 % (36.0-66.0); PLATELET COUNT, AUTOMATED 223 10^3/uL (150-450)
[2025-05-20 18:30] LABS: ALT/SGPT 33 U/L (7.0-40); AST/SGOT 35 U/L (<34); CALCIUM LEVEL 8.9 MG/DL (8.3-10.6); CARBON DIOXIDE LEVEL 28 MMOL/L (20-31); CHLORIDE LEVEL 104 MMOL/L (98-107); CHOLESTEROL LEVEL 253 MG/DL (<200); CHOLESTEROL RISK RATIO 3.77 (<5); CREATININE FOR GFR 0.75 MG/DL (0.55-1.30); GLOMERULAR FILTRATION RATE > 90.0 (>45); LDL CHOLESTEROL 158.2 MG/DL (<100); NON-HDL-C 186.0 MG/DL; POTASSIUM SERUM 4.4 MMOL/L (3.5-5.1); SODIUM LEVEL 141 MMOL/L (136-145); TRIGLYCERIDES LEVEL 139 MG/DL (<150)
[2025-05-20 18:38] LABS: ESTIMATED AVERAGE GLUCOSE 103.0 MG/DL (60-110)
== END ==
LOC: M SFHCLERA 10:03
PROVIDERS: ATTEND Student in an Organized Health Care Education/Training Program
DX: Z00.00 Encounter for general adult medical examination without abnormal findings (principal); E66.9 Obesity, unspecified; Z79.899 Other long term (current) drug therapy

== ENCOUNTER 2025-06-22 10:05 | Outpatient (CLI) | payer MEDICARE, OTHER ==
[~2025-06-22] VITALS: Ht 157.5 cm; Wt 62.0 kg
[2025-06-22 10:10] VITALS: BP 139/84; O2SAT 99
[2025-06-22] MEDS: VEDOLIZUMAB 300 MG in NS 250 ML IV ONE (10:54)
[2025-06-22 11:30] VITALS: BP 151/85; O2SAT 100
== END 2025-06-22 11:40 ==
LOC: M INFU 10:05
PROVIDERS: ATTEND Internal Medicine Gastroenterology
DX: K51.90 Ulcerative colitis, unspecified, without complications (principal)
CPT/HCPCS: 96413; J3380

== ENCOUNTER 2025-07-20 10:17 | Outpatient (CLI) | payer MEDICARE, OTHER ==
[~2025-07-20] VITALS: Ht 157.5 cm; Wt 62.7 kg
[2025-07-20 10:11] VITALS: BP 136/80; O2SAT 100
[~2025-07-20 10:17] MED LIST changes: +ZOLP10TA11 PO; -ZOLP10TA2 PO
[2025-07-20] MEDS: VEDOLIZUMAB 300 MG in NS 250 ML IV ONE (10:35)
[2025-07-20 11:07] VITALS: BP 141/75; O2SAT 100
== END 2025-07-20 11:05 ==
LOC: M INFU 10:17
PROVIDERS: ATTEND Internal Medicine Gastroenterology
DX: K51.30 Ulcerative (chronic) rectosigmoiditis without complications (principal)
CPT/HCPCS: 96413; J3380

== ENCOUNTER → 2025-08-02 | Outpatient (CLI) | payer MEDICARE, OTHER | LOC: M WHC 12:58 | PROVIDERS: ATTEND Nurse Practitioner Family | DX: Z12.31 Encounter for screening mammogram for malignant neoplasm of breast (principal) ==

== ENCOUNTER 2025-08-17 10:06 | Outpatient (CLI) | payer MEDICARE ==
[~2025-08-17] VITALS: Ht 157.5 cm; Wt 61.4 kg
[2025-08-17 10:30] VITALS: BP 135/69; O2SAT 99
[2025-08-17] MEDS: VEDOLIZUMAB 300 MG in NS 250 ML IV ONE (11:06)
[2025-08-17 11:41] VITALS: BP 140/77; O2SAT 100
== END 2025-08-17 11:40 ==
LOC: M INFU 10:06
PROVIDERS: ATTEND Internal Medicine Gastroenterology
DX: K51.30 Ulcerative (chronic) rectosigmoiditis without complications (principal)
CPT/HCPCS: 96413; J3380

== ENCOUNTER 2025-09-14 10:03 | Outpatient (CLI) | payer MEDICARE, OTHER ==
[~2025-09-14] VITALS: Ht 157.5 cm; Wt 59.0 kg
[2025-09-14 10:30] VITALS: BP 153/74; O2SAT 99
[2025-09-14] MEDS: VEDOLIZUMAB 300 MG in NS 250 ML IV ONE (11:05)
[2025-09-14 11:40] VITALS: BP 154/97; O2SAT 100
== END 2025-09-14 11:45 ==
LOC: M INFU 10:03
PROVIDERS: ATTEND Internal Medicine Gastroenterology
DX: K51.30 Ulcerative (chronic) rectosigmoiditis without complications (principal)
CPT/HCPCS: 96413; J3380

== ENCOUNTER 2025-10-12 09:44 | Outpatient (CLI) | payer MEDICARE ==
[~2025-10-12] VITALS: Ht 157.5 cm; Wt 64.0 kg
[2025-10-12 10:35] VITALS: BP 160/81; O2SAT 98
[2025-10-12] MEDS: VEDOLIZUMAB 300 MG in NS 250 ML IV ONE (10:50)
[2025-10-12 11:25] VITALS: BP 175/85; O2SAT 100
== END 2025-10-12 11:30 | disposition home or self-care (01) ==
LOC: M INFU 09:44
PROVIDERS: ATTEND Internal Medicine Gastroenterology
DX: K51.30 Ulcerative (chronic) rectosigmoiditis without complications (principal); Z11.59 Encounter for screening for other viral diseases
CPT/HCPCS: 86480; 87340; 96413; J3380